=== PATIENT | female | born 1960 ===

== ENCOUNTER 2017-04-21 16:26 | Emergency (ER) | payer OTHER ==
[2017-04-21 16:33] VITALS: O2SAT 100
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
[2017-04-21 17:34] LABS: RBC URINE 4 /hpf (0-3); URINE BACTERIA RARE (<OCC); URINE BILIRUBIN NEGATIVE (NEGATIVE); URINE BLOOD 2+ (NEGATIVE); URINE COLOR Straw (YELLOW); URINE GLUCOSE (UA) NORMAL (Normal); URINE KETONE NEGATIVE (NEGATIVE); URINE LEUKOCYTE ESTERASE NEG Leu/uL (Negative); URINE PROTEIN NEGATIVE (NEGATIVE); URINE UROBILINOGEN NORMAL mg/dL (0.2-1.0); WBC URINE < 1 /hpf (0-5)
[2017-04-21 18:18] VITALS: BP 132/75; PULSE 72; RESP 18; TEMP 98.2
--- NOTE | 2017-04-22 08:32 | RAD ---
Lumbar spine three views History: Low back pain. Comparison: None available. Findings: Mild levoscoliotic curvature of the mid lumbar spine. Minimal anterolisthesis of L5 on S1. Minimal multilevel retrolisthesis of several lumbar vertebral bodies for example L2 on L3, L3 on L4, and L4 on L5. Suggestion of minimal loss of height of the T10 and T11 vertebral bodies. Impression: Degenerative changes. If pain persists, consider MRI.
== END 2017-04-21 18:19 | disposition home or self-care (01) ==
LOC: C.ER 16:26
DX: M54.42 Lumbago with sciatica, left side (principal)
CPT/HCPCS: 72100; 81001; 96372; 99284; J1885

== ENCOUNTER 2017-04-23 15:16 | Emergency (ER) | payer OTHER ==
[2017-04-23 15:27] VITALS: BP 139/82; PULSE 79; RESP 18; TEMP 98.1; O2SAT 100
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
[2017-04-23] MEDS ORDERED: Lidocaine 5% Patch TD STA (15:50)
[2017-04-23] MEDS ORDERED: Lidocaine 5% Patch TD ONE (16:06)
== END 2017-04-23 16:46 | disposition home or self-care (01) ==
LOC: C.ER 15:16
DX: M54.42 Lumbago with sciatica, left side (principal)

== ENCOUNTER 2017-05-21 09:50 | Emergency (ER) | payer OTHER ==
[2017-05-21 10:13] VITALS: RESP 18; TEMP 97.5
[2017-05-21] MEDS ORDERED: Sodium Chloride 0.9% 1,000 ML IV ONE ×2 (10:34→10:35)
--- NOTE | 2017-05-21 10:39 | C.PDOC ---
History Of Present Illness 56 y/o female presents to ED with complaints of left side abdominal pain with radiation to back for 1 day. Patient denies fever, chills, n/v/d, urinary symptoms or any other complaints at this time. Time Seen by Provider: 05/21/17 10:18 Chief Complaint (Nursing): Abdominal Pain History Per: Patient History/Exam Limitations: no limitations Onset/Duration Of Symptoms: Days Current Symptoms Are (Timing): Still Present Location Of Pain/Discomfort: LUQ Radiation Of Pain To:: Back Quality Of Discomfort: Dull Associated Symptoms: Back Pain Exacerbating Factors: Movement Past Medical History Reviewed: Historical Data, Nursing Documentation, Vital Signs Vital Signs: Last Vital Signs Temp 97.5 F L 05/21/17 10:10 Pulse 70 05/21/17 12:53 Resp 18 05/21/17 12:53 BP 134/77 05/21/17 12:53 Pulse Ox 95 05/21/17 12:53 - Medical History PMH: No Chronic Diseases Surgical History: No Surg Hx Family History: States: Unknown Family Hx - Social History Hx Alcohol Use: No Hx Substance Use: No - Immunization History Hx Tetanus Toxoid Vaccination: No Hx Influenza Vaccination: No Hx Pneumococcal Vaccination: No Review Of Systems Except As Marked, All Systems Reviewed And Found Negative. Constitutional: Negative for: Fever, Chills Gastrointestinal: Positive for: Abdominal Pain. Negative for: Nausea, Vomiting , Diarrhea Genitourinary: Negative for: Dysuria, Frequency Musculoskeletal: Positive for: Back Pain Physical Exam - Physical Exam Appears: Non-toxic, No Acute Distress Skin: Normal Color, Warm Head: Atraumatic, Normacephalic Oral Mucosa: Moist Cardiovascular: Rhythm Regular, No Murmur Respiratory: Normal Breath Sounds, No Rales, No Rhonchi, No Wheezing Gastrointestinal/Abdominal: Soft, Tenderness (Tender to LUQ ), No Guarding, No Rebound Back: Other (Left sided Tenderness) Extremity: Normal ROM, Capillary Refill (<2 seconds) Neurological/Psych: Oriented x3, Normal Motor, Normal Sensation, Normal Reflexes ED Course And Treatment - Laboratory Results Result Diagrams: 05/21/17 11:06 05/21/17 11:06 Lab Interpretation: Normal O2 Sat by Pulse Oximetry: 100 (RA) Pulse Ox Interpretation: Normal - CT Scan/US No standard instances Other Rad Studies (CT/US): Read By Radiologist, Radiology Report Reviewed CT/US Interpretation: FINDINGS: LOWER THORAX: Unremarkable. LIVER: Unremarkable. No gross lesion or ductal dilatation. GALLBLADDER AND BILE DUCTS : Unremarkable. PANCREAS: Unremarkable. No gross lesion or ductal dilatation. SPLEEN: Unremarkable. ADRENALS: Unremarkable. No mass. KIDNEYS AND URETERS: 3-4 mm calculus in the upper pole left kidney and in the lower pole left kidney. No evidence of urinary tract obstruction. No right renal calculus. Rounded hyperdense structure in the upper pole left kidney, 11 mm diameter. Possible hyperdense cyst. Recommend correlation with ultrasound examination on a nonemergent basis. No other renal mass. VASCULATURE: Unremarkable. No aortic aneurysm. BOWEL: Mild sigmoid diverticulosis. Scattered colonic diverticulae elsewhere. No evidence of diverticulitis. No bowel obstruction. APPENDIX: Unremarkable. Normal appendix. PERITONEUM: Unremarkable. No free fluid. No free air. LYMPH NODES: Unremarkable. No enlarged lymph nodes. BLADDER: Unremarkable. REPRODUCTIVE: Unremarkable uterus. BONES: No acute fracture. OTHER FINDINGS: None. IMPRESSION: Two nonobstructing left renal calculi. 11 mm rounded hyperdense lesion in the upper pole left kidney, possibly hyperdense cyst. Correlate with ultrasound examination on a nonemergent basis. Scattered colonic diverticulae. No evidence of diverticulitis. No other significant abnormality. Progress Note: Treated with toradol 30 mg IV and NSS. On re-evaluation abdomen soft non-tender Reassessment Condition: Unchanged Medical Decision Making Medical Decision Making: CT Ordered to rule out Kidney Stones Disposition Counseled Patient/Family Regarding: Studies Performed, Diagnosis, Need For Followup, Rx Given - Disposition Referrals: [facility] [Outside] [facility] [Outside] Disposition: HOME/ ROUTINE Disposition Time: 12:40 Condition: STABLE Additional Instructions: return to ED if any increase symptoms Prescriptions: Naproxen [Naprosyn] 1 tab PO BID PRN #25 tab PRN Reason: Pain Instructions: Abdominal Pain (ED), Back Pain (ED) Print Language: BARBADIAN - POA Present On Arrival: None - Clinical Impression Clinical Impression: Abdominal pain, Back pain - PA / PUBLIC SPEAKING COACH / Resident Statement MD/DO has reviewed & agrees with the documentation as recorded. - Scribe Statement The provider has reviewed the documentation as recorded by the Roger Linares All medical record entries made by the Scribe were at my direction and personally dictated by me. I have reviewed the chart and agree that the record accurately reflects my personal performance of the history, physical exam, medical decision making, and the department course for this patient. I have also personally directed, reviewed, and agree with the discharge instructions and disposition.
[2017-05-21] MEDS ORDERED: Sodium Chloride 0.9% 1,000 ML ONE (11:07)
[2017-05-21 11:10] LABS: BASO # 0.1 K/uL (0.0-0.2); BASO % 1.3 % (0.0-2.0); EOS # 0.3 K/uL (0.0-0.7); EOS % 3.1 % (0.0-4.0); LYMPH # 3.3 K/uL (1.0-4.3); LYMPH % 40.8 % (20.0-40.0); MEAN CELL VOLUME 92.6 fL (81.0-99.0); MEAN CORPUSCULAR HEMOGLOBIN 31.1 pg (27.0-31.0); MEAN CORPUSCULAR HGB CONC 33.6 g/dL (33.0-37.0); MEAN PLATELET VOLUME 10.8 fL (7.2-11.7); MONO # 0.6 K/uL (0.0-0.8); MONO % 7.6 % (0.0-10.0); NRBC % 0.1 % (0.0-2.0); RED CELL DISTRIBUTION WIDTH 13.3 % (11.5-14.5); WHITE BLOOD COUNT 8.2 K/uL (4.8-10.8)
[2017-05-21 11:25] LABS: CHLORIDE 105 mmol/L (98-107); SODIUM 138 mmol/L (132-148)
[2017-05-21 11:26] LABS: POTASSIUM 4.6 mmol/L (3.6-5.2)
[2017-05-21 11:27] LABS: GFR AFRICAN-AMERICAN > 60
[2017-05-21 11:28] LABS: ALB/GLOB RATIO 1.1 (1.0-2.1); ALKALINE PHOSPHATASE 74 U/L (38-126); ALT/SGPT 17 U/L (9-52); AST/SGOT 33 U/L (14-36); BILIRUBIN,TOTAL 1.2 mg/dL (0.2-1.3); BLOOD UREA NITROGEN 15 mg/dL (7-17); CALCIUM 8.8 mg/dl (8.6-10.4); CARBON DIOXIDE 23 mmol/L (22-30); GLUCOSE,RANDOM 85 mg/dL (65-105)
--- NOTE | 2017-05-21 12:24 | CT ---
PROCEDURE: CT Abdomen and Pelvis without intravenous contrast HISTORY: Pain COMPARISON: None. TECHNIQUE: Without contrast.. Contrast Dose: 0 Radiation dose: Total exam DLP = 273.32 mGy-cm. This CT exam was performed using one or more of the following dose reduction techniques: Automated exposure control, adjustment of the mA and/or kV according to patient size, and/or use of iterative reconstruction technique. FINDINGS: LOWER THORAX: Unremarkable. LIVER: Unremarkable. No gross lesion or ductal dilatation. GALLBLADDER AND BILE DUCTS: Unremarkable. PANCREAS: Unremarkable. No gross lesion or ductal dilatation. SPLEEN: Unremarkable. ADRENALS: Unremarkable. No mass. KIDNEYS AND URETERS: 3-4 mm calculus in the upper pole left kidney and in the lower pole left kidney. No evidence of urinary tract obstruction. No right renal calculus. Rounded hyperdense structure in the upper pole left kidney, 11 mm diameter. Possible hyperdense cyst. Recommend correlation with ultrasound examination on a nonemergent basis. No other renal mass. VASCULATURE: Unremarkable. No aortic aneurysm. BOWEL: Mild sigmoid diverticulosis. Scattered colonic diverticulae elsewhere. No evidence of diverticulitis. No bowel obstruction. APPENDIX: Unremarkable. Normal appendix. PERITONEUM: Unremarkable. No free fluid. No free air. LYMPH NODES: Unremarkable. No enlarged lymph nodes. BLADDER: Unremarkable. REPRODUCTIVE: Unremarkable uterus. BONES: No acute fracture. OTHER FINDINGS: None. IMPRESSION: Two nonobstructing left renal calculi. 11 mm rounded hyperdense lesion in the upper pole left kidney, possibly hyperdense cyst. Correlate with ultrasound examination on a nonemergent basis. Scattered colonic diverticulae. No evidence of diverticulitis. No other significant abnormality.
[2017-05-21 12:55] VITALS: BP 134/77; PULSE 70
[2017-05-21 17:50] VITALS: O2SAT 100
== END 2017-05-21 13:07 | disposition home or self-care (01) ==
LOC: C.ER 09:50
DX: R10.12 Left upper quadrant pain (principal); M54.89 Other dorsalgia
CPT/HCPCS: 74176; 80053; 83690; 85025; 96361; 96374; 99284; J1885; J7040